=== PATIENT | female | born 1960 | race Caucasian/White ===

== ENCOUNTER → 2017-02-06 | Outpatient (CLI) | payer OTHER | LOC: MMPC 11:11 | PROVIDERS: ATTEND Surgery | DX: Z80.0 Family history of malignant neoplasm of digestive organs (principal) | CPT/HCPCS: 99212; G0463 ==

== ENCOUNTER 2017-02-07 09:04 | Day surgery (SDC) | payer OTHER ==
[~2017-02-07 09:04] MED LIST: LIDOCAINE W/ SODIUM BICARB 0.5 ML SYR ONE; Lactated Ringers 0 ML PRIMARY IV ONE; Lactated Ringers 1,000 ML PRIMARY IV ONE; fentaNYL Inj 100 MCG/2 ML VIAL ONE
--- NOTE | 2017-02-07 10:37 | GEN.OPNOTE ---
Colonoscopy Procedure Note Surgery Date: 02/07/17 Preoperative Diagnosis: Family history of colon cancer. Colon cancer screening. Postoperative Diagnosis: Same. Procedure: Complete colonoscopy. Surgeon: Enrique Cha MD Anesthesia Provider: Tony White CRNA Anesthesia Type: MAC Indications: See preoperative diagnosis. Findings: Prep : [Very good with some easily removable retained liquid.] Cecum : [Normal] Ascending : [Normal] Transverse : [Normal] Sigmoid : [Normal] Rectum : [A few diverticuli] Digital Rectal Exam : [Combined internal and external hemorrhoids.] A lubricated flexible colonoscope was inserted and passed to the blind end of the cecum. The [place]'s foot and ileocecal valve were clearly seen. Air was aspirated as the scope was withdrawn. The entire colonoscopy was normal with the exception of a few scattered sigmoid diverticuli. Specifically there were no polyps, tumors, neoplastic masses, infectious or inflammatory processes identified. The scope was withdrawn completing the procedure. Patient tolerated the procedure well without complication. She was taken to outpatient surgery in stable condition. Follow-up will be with my office on an as-needed basis. Recommend follow-up colonoscopy in 5 years with a family history of colon cancer.
[2017-02-07 11:28] VITALS: RESP 16
[2017-02-07 11:29] VITALS: TEMP 97
== END 2017-02-07 10:52 | disposition home or self-care (01) ==
LOC: SDSC 09:04
PROVIDERS: ATTEND Surgery
DX: Z80.0 Family history of malignant neoplasm of digestive organs (principal); Z12.11 Encounter for screening for malignant neoplasm of colon
CPT/HCPCS: G0105; J2704; J3010; J7120